=== PATIENT | male | born 1985 | race Caucasian/White ===

== ENCOUNTER 2018-11-05 23:53 | Emergency (ER) | payer SELFPAY ==
[2016-04-29 15:58] VITALS: Wt 99.8 kg
[~2018-11-05 23:53] MED LIST: CALC-515 PO; CEPH500C24 PO; HYDR-653 PO; HYDR25CA13 PO; HYDR25CA83 PO; IBU600 PO; KET10 PO; LOR5/325 PO; LORA-630 PO; METH-543 PO; MULT-1379 PO; NO ROUTINE MEDS; OMEP-218 PO; PANT40TA65 PO; PRED-1 PO; TRAZ100T31 PO; TRAZ50TA52 PO; ZOLP-1 PO; ZOLP-350 PO
[2018-11-06] MEDS ORDERED: DIPHTH/TETANUS/ACEL. PERTUSSIS IM ONLY ONE
--- NOTE | 2018-11-06 00:18 | ER Report ---
History and Physical Time Seen By MD: 00:16 Hx. of Stated Complaint: PATIENT BROUGHT IN FOR [facility] CLEARENCE D/T INTOXICATION AND LACERATION HPI/ROS CHIEF COMPLAINT: Intoxication, assisted clearance. HISTORY OF PRESENT ILLNESS: This is a 33 year old male. He is intoxicated and is not wanting to cooperate at all with exam. He is complaining of headache on left roman catholic, has a laceration and swelling above the eyebrow. He is not letting use evaluate this. Unable to obtain other information from him. Secondhand information from police is they were called to his home for a check, and found that he was injured. On further evaluation, he had two warrants, so brought him for assisted clearance. REVIEW OF SYSTEMS: Unable to obtain. Allergies: Coded Allergies: latex (Verified Allergy, Intermediate, RASH, 11/05/18) Home Meds Active Scripts Amoxicillin/Pot Clav 875-125 Mg Tab (AUGMENTIN 875-125 TABLET) 1 Each Tablet, 1 TAB PO Q12H, #20 TAB 0 Refills Prov:CHUN HENDERSON MD 11/06/18 Reviewed Nurses Notes: Yes Hx Smoking: Yes Smoking Status: Former Smoker Exposure to Second Hand Smoke?: Yes Hx Substance Use Disorder: Yes Hx Alcohol Use: Yes Constitutional Vital Sign - Last 24 Hours 11/05/18 23:55 Temp 98.6 Pulse 123 Resp 16 B/P (MAP) 133/88 Pulse Ox 93 O2 Delivery Room Air Physical Exam General Appearance: Alert, but intoxicated, and combative. In police custody with handcuffs behind, considered dangerous at this time. No immediate need for airway protection. Eyes: Pupils are equal, round. Reactive to light. No pallor, injection or icterus. Extraocular movements appear intact. Has swelling above the left eye in eyebrow area, mild swelling around the eye. Pain thoughout the area to the point he will not let me examine the area. After sedation, the area was examined. Mild swelling around orbit, but mainly over the eyebrow and laceration. ENT: Mucous membranes are moist. Normal oral mucosa. Posterior oropharynx is normal. Jones Neck: Supple and no apparent tenderness. Respiratory: Lungs are clear to auscultation, breathing easily. Cardiovascular: Regular rate and rhythm. Normal capillary refill. Neurological: Intoxicated. No focal neurologic deficits Skin: Warm and dry. No rashes. Laceration over left eyebrow, about 4cm long, linear. Musculoskeletal: Extremities and back without apparent tenderness. DIFFERENTIAL DIAGNOSIS: After history and physical exam, differential diagnosis was considered for patient with headache, pain over the eye and laceration, but is intoxicated and combative. Medical Decision Making EKG/Imaging Imaging CT BRAIN NO CONTRAST HISTORY: Intoxicated, laceration to forehead COMPARISON STUDIES: 01/25/2014 TECHNIQUE: Contiguous axial images were obtained from the skull base to the vertex. One of the following dose optimization techniques was utilized in the performance of this exam: Automated exposure control; adjustment of the mA and/or kV according to the patient's size; or use of an iterative reconstruction technique. Specific details can be referenced in the facility's radiology CT exam operational policy. FINDINGS: There is some motion artifact on the current study Hemorrhage: Negative Ventricles / sulci / fissures: Negative Masses / midline shift: Negative White matter: Negative Casanova-white differentiation: Negative Extra-axial spaces: Negative Bones and skull base: There is a left orbital floor fracture with orbital fat herniating 8 mm below the floor of the orbit. No significant soft tissue swelling this location and no fluid in the left maxillary sinus suggests this is chronic. Finding is new from imaging from 2013 however. Please correlate clinically. Visualized mastoid air cells / paranasal sinuses: There is some polypoid mucosal thickening in the right maxillary sinus. There is a small amount of soft tissue swelling around the left periorbital region. IMPRESSION: 1. No evidence for acute intracranial hemorrhage, mass or acute ischemia. 2. Fracture of the floor of the left orbit which is potentially chronic with some herniation of orbital fat into the maxillary sinus. No other discrete facial fractures are seen. Finding is new from 2014 however. Please correlate clinically. 3. Mild left periorbital soft tissue swelling. Results were called to CHUN HENDERSON at 11/06/2018 2:20 AM. Report Dictated By: Marco Antonio Hawkins MD at 11/06/2018 2:13 AM ED Course/Re-evaluation ED Course Given Zyprexa 10mg IM, Benadryl 50mg IM, and Ativan 2mg IM. Sedated partially, but not enough to treat and get CT scan. Added 150mg Ketamine IM, subsedation dose, and patient calmed down. CT scan done, shows old orbital floor fracture on left, no acute findings. Decision to Disposition Date: Nov 06, 2018 Decision to Disposition Time: 02:42 Depart Departure Latest Vital Signs Vital Signs Date Time Temp Pulse Resp B/P (MAP) Pulse Ox O2 Delivery O2 Flow Rate FiO2 11/05/18 23:55 98.6 123 16 133/88 93 Room Air Impression: Primary Impression: Eyebrow laceration Additional Impression: Orbital floor fracture Condition: Improved [facility] F New Scripts Amoxicillin/Pot Clav 875-125 Mg Tab (AUGMENTIN 875-125 TABLET) 1 Each Tablet 1 TAB PO Q12H, #20 TAB 0 Refills Prov: CHUN HENDERSON MD 11/06/18 Patient Instructions: Facial Laceration (ED), Skin Adhesive Care (ED) Additional Instructions: You have an old fracture in the left face, in an area below the eyeball, called the orbital floor. Please follow-up with an ENT physician for further evaluation. Take the antibiotic Augmentin 875/125 twice a day for 10 days. Problem Qualifiers Primary Impression: Eyebrow laceration Encounter type: initial encounter Laterality: left Qualified Codes: S01.112A - Laceration without foreign body of left eyelid and periocular area, initial encounter Additional Impression: Orbital floor fracture Encounter type: initial encounter Fracture type: closed Laterality: left Qualified Codes: S02.32XA - Fracture of orbital floor, left side, initial encounter for closed fracture CHUN HENDERSON MD Nov 06, 2018 00:18
[2018-11-06] MEDS ORDERED: OLANZapine 10 MG VIAL IM ONLY ONE (00:40)
[2018-11-06] MEDS ORDERED: LORazepam 2 MG/ML VIAL IM ONE (00:40)
[2018-11-06] MEDS ORDERED: WATER STERILE 10 ML VIAL IM ONLY ONE (00:40)
[2018-11-06] MEDS ORDERED: diphenhydrAMINE 50 MG/ML VIAL IM ONE (00:40)
[2018-11-06] MEDS ORDERED: KETAMINE HCL 500 MG/5 ML VIAL IM ONE ×2 (01:35→01:40)
--- NOTE | 2018-11-06 02:27 | RADIOLOGY IMAGING REPORT ---
FACILITY: [facility] PATIENT NAME: Arian Forrester : 1985 MR: [id number] V: [id number] EXAM DATE: ORDERING PHYSICIAN: CHUN HENDERSON TECHNOLOGIST: Location: [facility] [place] Patient: Arian Forrester : 1985 Visit/Account:[id number] Date of Sevice: 11/06/2018 CT BRAIN NO CONTRAST HISTORY: Intoxicated, laceration to forehead COMPARISON STUDIES: 01/25/2014 TECHNIQUE: Contiguous axial images were obtained from the skull base to the vertex. One of the following dose optimization techniques was utilized in the performance of this exam: Autom ated exposure control; adjustment of the mA and/or kV according to the patient's size; or use of an i terative reconstruction technique. Specific details can be referenced in the facility's radiology C T exam operational policy. FINDINGS: There is some motion artifact on the current study Hemorrhage: Negative Ventricles / sulci / fissures: Negative Masses / midline shift: Negative White matter: Negative Casanova-white differentiation: Negative Extra-axial spaces: Negative Bones and skull base: There is a left orbital floor fracture with orbital fat herniating 8 mm below t he floor of the orbit. No significant soft tissue swelling this location and no fluid in the left max illary sinus suggests this is chronic. Finding is new from imaging from 2013 however. Please correlat e clinically. Visualized mastoid air cells / paranasal sinuses: There is some polypoid mucosal thickening in the ri ght maxillary sinus. There is a small amount of soft tissue swelling around the left periorbital region. IMPRESSION: 1. No evidence for acute intracranial hemorrhage, mass or acute ischemia. 2. Fracture of the floor of the left orbit which is potentially chronic with some herniation of orbit al fat into the maxillary sinus. No other discrete facial fractures are seen. Finding is new from 201 4 however. Please correlate clinically. 3. Mild left periorbital soft tissue swelling. Results were called to CHUN HENDERSON at 11/06/2018 2:20 AM. Report Dictated By: Marco Antonio Hawkins MD at 11/06/2018 2:13 AM Report E-Signed By: Marco Antonio Hawkins MD at 11/06/2018 2:20 AM WSN:[id number]
[2018-11-06] MEDS ORDERED: AMOX-559 PO (02:46)
[2018-11-06] MEDS ORDERED: cefTRIAXone 1 GM VIAL IM ONE (02:50)
[2018-11-06] MEDS ORDERED: LIDOCAINE 1% MDV 200 MG/20 ML INJ ONE (02:50)
[2018-11-06 02:55] VITALS: BP 120/72
== END 2018-11-06 02:58 ==
LOC: ER 11-06 00:19
DX: S01.112A Laceration without foreign body of left eyelid and periocular area, initial encounter (principal); S02.32XA Fracture of orbital floor, left side, initial encounter for closed fracture
CPT/HCPCS: 12013; 70450; 90471; 90715; 96372; 99284; A4216; J0696; J1200; J2001; J2060; J3490